=== PATIENT | female | born 1995 | race African-American/Black ===

== ENCOUNTER 2023-11-07 00:42 | Emergency (ER) | payer MEDICAID ==
[~2023-11-07] VITALS: Ht 152.4 cm; Wt 48.5 kg
[~2023-11-07 00:42] MED LIST: FE F1TAB3 PO; MONT-39 PO
[2023-11-07] MEDS: BUDESONIDE 0.5 MG/2 ML INH IH ONE (01:12)
[2023-11-07] MEDS: IpraTROPium/alBUTERol SULFATE 3 ML SOLUTION IH ONE ×3 (01:12→04:04)
[2023-11-07 01:15] VITALS: PULSE 134; RESP 17
[2023-11-07 01:30] VITALS: PULSE 139; RESP 17
[2023-11-07] MEDS: Solu-medROL 125MG VIAL IVP ONE (01:35)
[2023-11-07] MEDS: MAGNESIUM 2GM PREMIX 50ML 50 ML IV SCH (01:37)
[2023-11-07] MEDS: acetaMINOPHEN 325 MG TAB ONE (01:46)
[2023-11-07] MEDS: acetaMINOPHEN 325 MG TAB PO ONE (02:03)
[2023-11-07 04:04] VITALS: PULSE 126; RESP 18
[2023-11-07] MEDS ORDERED: BUDESONIDE 0.5 MG/2 ML INH IH SCH (06:00)
[2023-11-07] MEDS ORDERED: PRED10TA23 PO (06:02)
[2023-11-07] MEDS ORDERED: ALBU2.5V2 IH (06:02)
[2023-11-07] MEDS ORDERED: MONT-47 PO (06:02)
[2023-11-07] MEDS ORDERED: BUDE0.5A8 IH (06:02)
[2023-11-07 06:07] VITALS: BP 100/66; PULSE 110; RESP 25; TEMP 98.1; O2SAT 95
== END 2023-11-07 06:10 | disposition left against medical advice (07) ==
LOC: EDH 00:42
DX: J45.901 Unspecified asthma with (acute) exacerbation (principal); Z79.899 Other long term (current) drug therapy
CPT/HCPCS: 99285; 96365; 96375; 96376; 94640 ×3; J3475 ×2; J2919